=== PATIENT | female | born 1955 ===

== ENCOUNTER 2017-07-23 11:59 | Emergency (ER) | payer BC ==
[~2017-07-23] VITALS: Ht 167.6 cm; Wt 79.4 kg
[2017-07-23] MEDS ORDERED: POTASSIUM 25 M25 ME1 PO (12:31)
[2017-07-23] MEDS ORDERED: DILTIAZEM ER180 MG PO (12:31)
[2017-07-23] MEDS ORDERED: DYAZIDE 37.5-21 EACH (12:32)
[2017-07-23] MEDS ORDERED: ZITHROMAX500 MG PO (15:01)
[2017-07-23] MEDS ORDERED: TUSSIONEX PENN115 ML PO (15:01)
[2017-07-23] MEDS ORDERED: MEDROLPACK PO (15:01)
== END 2017-07-23 16:10 | disposition home or self-care (01) ==
LOC: ER 11:59
DX: R05 Cough (principal)

== ENCOUNTER 2018-04-30 04:19 | Emergency (ER) | payer BC ==
[~2018-04-30] VITALS: Ht 167.6 cm; Wt 77.1 kg
[~2018-04-30 04:19] MED LIST: DILTIAZEM ER180 MG PO; DYAZIDE 37.5-21 EACH; MEDROLPACK PO; POTASSIUM 25 M25 ME1 PO; TUSSIONEX PENN115 ML PO; ZITHROMAX500 MG PO
[2018-04-30] MEDS ORDERED: KLOR-CON20 MEQ (05:00)
[2018-04-30] MEDS ORDERED: DILTIAZEM 24HR180 MG (05:00)
[2018-04-30] MEDS ORDERED: PNEU16DI2 ×2 (05:02→05:03)
[2018-04-30] MEDS ORDERED: MONTELUKAST SOD10 MG (05:02)
[2018-04-30] MEDS ORDERED: PRAVASTATIN SOD10 MG (05:02)
[2018-04-30] MEDS ORDERED: TRIAMTERENE (05:02)
[2018-04-30] MEDS ORDERED: ALLERGY10 M1 (05:03)
[2018-04-30] MEDS ORDERED: KETO10TA2 PO (08:45)
== END 2018-04-30 09:02 | disposition home or self-care (01) ==
LOC: ER 04:19
DX: S53.492A Other sprain of left elbow, initial encounter (principal); W01.198A Fall on same level from slipping, tripping and stumbling with subsequent striking against other object, initial encounter; Y93.89 Activity, other specified; Y92.018 Other place in single-family (private) house as the place of occurrence of the external cause; Y99.8 Other external cause status